=== PATIENT | female | born 1990 | race Hispanic/Latino ===

== ENCOUNTER 2023-03-17 18:33 | Emergency (ER) | payer MEDICAID ==
[~2023-03-17] VITALS: Ht 152.4 cm; Wt 62.1 kg
[2023-03-17 19:54] VITALS: BP 145/87
[2023-03-17] MEDS ORDERED: 0.9%NACL 1000ML 1,000 ML IV ONE (20:30)
[2023-03-17] MEDS ORDERED: ONDANSETRON 4MG INJ IVP ONE (20:30)
[2023-03-17 21:26] LABS: BASOPHILS % (AUTO) 0.8 % (0.0-5.0); EOSINOPHILS % (AUTO) 2.5 % (0.0-8.0); HEMATOCRIT 40.3 % (36-48); LYMPHOCYTES % (AUTO) 28.9 % (21.0-51.0); MEAN CORPUSCULAR HEMOGLOBIN 22.3 pg (27.0-33.0); MEAN CORPUSCULAR HGB CONC 31.3 g/dL (32.0-36.0); MEAN CORPUSCULAR VOLUME 71.2 fL (79-99); NEUTROPHILS % (AUTO) 59.4 % (40.0-77.0); PLATELET COUNT (AUTO) 385 K/uL (130-400); RED BLOOD CELL COUNT(AUTO) 5.66 MIL/uL (4.00-5.50); RED CELL DISTRIBUTION WIDTH 14.9 % (11.0-15.5); WHITE BLOOD COUNT (AUTO) 10.1 K/uL (4.8-10.8)
[2023-03-17 21:38] LABS: CREATININE 0.9 mg/dL (0.5-1.5); POTASSIUM 3.9 mmol/L (3.5-5.1)
[2023-03-17 21:40] LABS: ALBUMIN 4.6 g/dL (3.5-5.0); TOTAL PROTEIN, SERUM 8.7 g/dL (6.0-8.3)
== END 2023-03-17 22:42 | disposition home or self-care (01) ==
LOC: EDH 18:33
DX: B34.9 Viral infection, unspecified (principal); Z20.822 Contact with and (suspected) exposure to COVID-19
CPT/HCPCS: 99283; 96374; 87635; 96361 ×3; 80053; 83690; 85025; 87880; 87804 ×2; 81025; 36415; C9803; J7030; J2405